=== PATIENT | male | born 1955 | race Caucasian/White ===

== ENCOUNTER 2017-03-08 21:52 | Emergency (ER) | payer OTHER ==
[2017-03-08 22:00] VITALS: TEMP 98.6
[2017-03-08] MEDS ORDERED: ONDANSETRON 4 MG/2 ML VIAL IVP ONE (22:02)
[2017-03-08] MEDS ORDERED: HYDROmorphONE/DILAUDID 1 MG/ML SYR IVP ONE (22:02)
[2017-03-08] MEDS ORDERED: NS 1,000 ML IV ONE (22:02)
--- NOTE | 2017-03-08 22:05 | EDPHY ---
H & P Time Seen by Provider: 03/08/17 22:01 HPI/ROS: HPI Possible kidney stone, left lower abdominal pain. 61-year-old male by private vehicle with his . This patient complains of left lower quadrant pain which is described as a sharp and aching radiating to his Center abdomen. He reports he has had this pain for 2 days. He reports the pain is similar to prior pain with kidney stones. He has had no hematuria. No fever. No nausea or vomiting. Denies bloody or melenic stool. No diarrhea. ROS: Constitutional: No fever, no chills. No weakness. Eyes: No discharge. No changes in vision. ENT: No sore throat. No nasal congestion or rhinorrhea. Respiratory: No cough. No shortness of breath. Cardiac: No chest pain, no palpitations. Gastrointestinal: As above, no vomiting, no diarrhea. Genitourinary: No hematuria. No dysuria or increased frequency with urination. Musculoskeletal: No back pain. No neck pain. No myalgias or arthralgias. Skin: No rashes. Neurological: No headache. No focal weakness or altered sensation. Past medical history: Back surgery, hypertension, testicular cancer, history of kidney stones. Social history: Here with his . Nonsmoker. No alcohol. Physical Exam: General Appearance: Alert, appears uncomfortable. This patient is responding to questions appropriately and in full sentences. This patient appears well- hydrated and well-nourished. Eyes: Pupils equal and round no pallor or injection. No lid edema, erythema or injection. Respiratory: There are no retractions, lungs are clear to auscultation with good air movement bilaterally. Cardiovascular: Regular rate and rhythm. No murmur. Gastrointestinal: Abdomen is soft with mild and vague left lower quadrant tenderness on palpation and vague periumbilical tenderness on palpation, no masses, bowel sounds present. No focal tenderness at McBurney's point. No Corea sign. Neurological: Motor sensory function is grossly intact. Cranial nerves are normal. Gait is normal. Skin: Warm and dry, no rashes. Musculoskeletal: No CVA tenderness on palpation bilaterally. Extremities are symmetrical. All joints range without pain or impingement. Psychiatric: No agitation. No depression. Database: EKG: Imaging: CT scan of abdomen and pelvis without contrast: Several nonobstructing stones in the left kidney. Some dilation and edema involving the small bowel particularly in the left lower quadrant. Consistent with a gastroenteritis verses a partial small-bowel obstruction. Results were discussed with staff radiologist Dr. Schuyler Zapata. Procedures: Emergency department course: IV placed. Patient was placed on a electronic device monitor. He was started on IV normal saline with 1 L to be given over 1 hour. He was initially given 0.5 mg of IV hydromorphone for pain and 4 mg of IV Zofran. This will be repeated as needed. He consents for CT imaging to evaluate for probable ureterolithiasis. 10:25 p.m., patient stood up to urinate became lightheaded and had a brief syncopal episode. I was at the bedside shortly after this event. He has no complaints other than feeling a little bit lightheaded. Blood pressure currently 104/65. patient monitor shows a narrow complex sinus rhythm with ventricular rate of 58. He denies any associated headache, palpitations, chest pain, shortness of breath. 11:30 p.m., patient has returned from CT. Renal insufficiency, likely secondary to dehydration noted. Another 500 cc of IV normal saline will be given. He is still not produced a urine sample for us. 12:00 a.m., patient re-evaluated. Resting comfortably at this time. He denies any pain. Repeat abdominal exam is soft, nontender nondistended. Results of his CAT scan were discussed with him and his . His is a nurse who works here at this hospital. I discussed admission for observation. They do not want to do this at this time. He has not had any vomiting. He has tolerated oral fluids in the emergency department. Given that his is a nurse and closely watch him I feel this is reasonable. I discussed my concern over his elevated creatinine and the need to follow up with his primary care physician, Dr. Thayer, to have this rechecked in a week. Return to emergency department precautions were thoroughly reviewed with the 2 of them. All of their questions were answered. The patient was discharged in good condition. Differential Diagnosis: The differential diagnosis on this patient includes but is not limited to kidney stones, diverticulitis, pyelonephritis, urinary tract infection, volvulus. This represents a partial list of diagnoses considered. These considerations are based on history, physical exam, past history, reassessment and diagnostic testing. Smoking Status: Never smoked Constitutional: Initial Vital Signs Temperature (C) 37 C 03/08/17 21:54 Heart Rate 76 03/08/17 21:54 Respiratory Rate 16 03/08/17 21:54 Blood Pressure 139/85 H 03/08/17 21:54 O2 Sat (%) 95 03/08/17 21:54 O2 Delivery Mode Nasal Cannula O2 (L/minute) 2 Allergies/Adverse Reactions: Penicillins Allergy (Verified 07/06/16 15:30) Home Medications: Medication Instructions Recorded Hydrochlorothiazide 12.5 MG (RX) 10/03/13 Lisinopril 10/03/13 Prilosec 10/03/13 Wellbutrin 10/03/13 Ambien 07/06/16 Medical Decision Making - Data Points Laboratory Results: Laboratory Results 03/08/17 22:15 03/08/17 22:15 03/08/17 03/08/17 03/08/17 23:45 22:15 22:15 WBC 8.88 10^3/uL 10^3/uL (3.80-9.50) RBC 5.80 10^6/uL 10^6/uL (4.40-6.38) Hgb 14.7 g/dL g/dL (13.7-17.5) Hct 45.2 % % (40.0-51.0) MCV 77.9 fL L fL (81.5-99.8) MCH 25.3 pg L pg (27.9-34.1) MCHC 32.5 g/dL g/dL (32.4-36.7) RDW 17.0 % H % (11.5-15.2) Plt Count 210 10^3/uL 10^3/uL (150-400) MPV 10.7 fL fL (8.7-11.7) Neut % (Auto) 71.9 % % (39.3-74.2) Lymph % (Auto) 17.9 % % (15.0-45.0) [place] % (Auto) 6.5 % % (4.5-13.0) Eos % (Auto) 3.0 % % (0.6-7.6) Baso % (Auto) 0.5 % % (0.3-1.7) Nucleat RBC Rel Count 0.0 % % (0.0-0.2) Absolute Neuts (auto) 6.38 10^3/uL 10^3/uL (1.70-6.50) Absolute Lymphs (auto) 1.59 10^3/uL 10^3/uL (1.00-3.00) Absolute Monos (auto) 0.58 10^3/uL 10^3/uL (0.30-0.80) Absolute Eos (auto) 0.27 10^3/uL 10^3/uL (0.03-0.40) Absolute Basos (auto) 0.04 10^3/uL 10^3/uL (0.02-0.10) Absolute Nucleated RBC 0.00 10^3/uL 10^3/uL (0-0.01) Immature Gran % 0.2 % % (0.0-1.1) Immature Gran # 0.02 10^3/uL 10^3/uL (0.00-0.10) Sodium 137 mEq/L mEq/L (134-144) Potassium 4.4 mEq/L mEq/L (3.5-5.2) Chloride 101 mEq/L mEq/L (97-110) Carbon Dioxide 20 mEq/l L mEq/l (22-31) Anion Gap 16 mEq/L mEq/L (8-16) BUN 35 mg/dL H mg/dL (7-23) Creatinine 1.6 mg/dL H mg/dL (0.7-1.3) Estimated GFR 44 Glucose 87 mg/dL mg/dL (70-100) Calcium 9.5 mg/dL mg/dL (8.5-10.4) Specimen Hemolysis 120 Urine Color YELLOW Urine Appearance CLEAR Urine pH 5.0 (5.0-7.5) Ur Specific [place]ck[place] 1.017 (1.002-1.030) Urine Protein NEGATIVE (NEGATIVE) Urine Ketones NEGATIVE (NEGATIVE) Urine Blood NEGATIVE (NEGATIVE) Urine Nitrate NEGATIVE (NEGATIVE) Urine Bilirubin NEGATIVE (NEGATIVE) Urine Urobilinogen NEGATIVE EU EU (0.2-1.0) Ur Leukocyte Esterase NEGATIVE (NEGATIVE) Urine RBC 1-3 /hpf /hpf (0-3) Urine WBC 3-5 /hpf H /hpf (0-3) Ur Epithelial Cells NONE SEEN /lpf /lpf (NONE-1+) Hyaline Casts 1-5 /lpf /lpf (0-1) Urine Mucus TRACE /lpf /lpf (NONE-1+) Urine Glucose NEGATIVE (NEGATIVE) Medications Given: Discontinued Medications Hydromorphone HCl (Dilaudid) 0.5 mg IVP EDNOW ONE Stop: 03/08/17 22:03 Last Admin: 03/08/17 22:22 Dose: 0.5 mg Sodium Chloride (Ns) 1,000 mls @ 0 mls/hr IV ONCE ONE PRN Reason: Wide Open Stop: 03/08/17 22:03 Last Admin: 03/08/17 22:22 Dose: 1,000 mls Ondansetron HCl (Zofran) 4 mg IVP EDNOW ONE Stop: 03/08/17 22:03 Last Admin: 03/08/17 22:23 Dose: 4 mg Departure - Departure Disposition: Home, Routine, Self-Care Clinical Impression: Abdominal pain, acute, left lower quadrant, Renal insufficiency Condition: Good Instructions: Acute Abdominal Pain (ED) Additional Instructions: Read and follow provided instructions. Follow-up with your primary care physician Dr. Thayer, next week for repeat of creatinine. Keep well hydrated. A good fluid to drink is Gatorade mixed with water in a 1- 1 solution. Drink small volumes but frequently. Soft diet for the next 24 hours as discussed. Again small portions. Take medication as prescribed. Return to the emergency department for worsening pain, fever, vomiting or other serious concerns. Referrals: Nigel Thayer MD [Primary Care Provider] - As per Instructions
[2017-03-08] MEDS ORDERED: HYDROmorphONE/DILAUDID 1 MG/ML SYR ONE (22:11)
[2017-03-08 22:38] LABS: % IMMATURE GRANULYOCYTES 0.2 % (0.0-1.1); ABSOLUTE IMMATURE GRANULOCYTES 0.02 10^3/uL (0.00-0.10); ADD DIFF? NO; ADD MORPH? NO; ADD SCAN? NO; ATYPICAL LYMPHOCYTE FLAG 0 (0-99); FRAGMENT RBC FLAG 0 (0-99); HEMATOCRIT 45.2 % (40.0-51.0); HEMOGLOBIN 14.7 g/dL (13.7-17.5); LEFT SHIFT FLG 0 (0-99); LIPEMIA HEMOLYSIS FLAG 80 (0-99); MEAN CELL HEMOGLOBIN 25.3 pg (27.9-34.1); MEAN CELL HEMOGLOBIN CONCENTR. 32.5 g/dL (32.4-36.7); MEAN CELL VOLUME 77.9 fL (81.5-99.8); MEAN PLATELET VOLUME 10.7 fL (8.7-11.7); PLATELET CLUMPS FLAG 0 (0-99); PLATELET COUNT 210 10^3/uL (150-400)
[2017-03-08 22:51] LABS: ANION GAP 16 mEq/L (8-16); CALCIUM 9.5 mg/dL (8.5-10.4); CARBON DIOXIDE 20 mEq/l (22-31); CHLORIDE 101 mEq/L (97-110); CREATININE 1.6 mg/dL (0.7-1.3); GLOMERULAR FILTRATION RATE 44; GLUCOSE 87 mg/dL (70-100); POTASSIUM 4.4 mEq/L (3.5-5.2); SODIUM 137 mEq/L (134-144); SPECIMEN HEMOLYSIS 120
[2017-03-09 00:04] LABS: COLOR YELLOW; LEUKOCYTE ESTERASE,URINE NEGATIVE (NEGATIVE); MUCUS TRACE /lpf (NONE-1+); NITRITE,URINE NEGATIVE (NEGATIVE)
[2017-03-09 00:31] VITALS: BP 126/72; PULSE 64; RESP 14; O2SAT 97
== END 2017-03-09 00:44 | disposition home or self-care (01) ==
DX: R10.32 Left lower quadrant pain (principal); I10 Essential (primary) hypertension; N28.9 Disorder of kidney and ureter, unspecified; Z85.47 Personal history of malignant neoplasm of testis
CPT/HCPCS: 96374; J1170; J2405

== ENCOUNTER 2018-04-20 07:37 | Day surgery (SDC) | payer OTHER ==
[2018-04-20] MEDS ORDERED: NS 500 ML IV ONE (08:04)
--- NOTE | 2018-04-20 08:24 | PDGENHP ---
History and Physical - Chief Complaint dysphagia - History of Present Illness 62 year old male with hx of GERD and recent worsening of symptoms despite PPI use. History Information - Allergies/Home Medication List Allergies/Adverse Reactions: Penicillins Allergy (Unknown, Verified 04/14/18 15:19) Other-Enter Comments Home Medications: Hydrochlorothiazide 12.5 MG (RX) 10/03/13 [Last Taken Unknown] Lisinopril 10/03/13 [Last Taken 07/21/16] Prilosec 10/03/13 [Last Taken 07/21/16] Wellbutrin 10/03/13 [Last Taken 07/21/16] Ambien 07/06/16 [Last Taken 07/21/16] Carvedilol 04/14/18 [Last Taken Unknown] Clonidine 04/14/18 [Last Taken Unknown] Colchicine 04/14/18 [Last Taken Unknown] Flomax 04/14/18 [Last Taken Unknown] Flonase Allergy Relief 04/14/18 [Last Taken Unknown] Fluoxetine HCl 04/14/18 [Last Taken Unknown] Multivitamins 04/14/18 [Last Taken Unknown] Proair Hfa 04/14/18 [Last Taken Unknown] Saw [place] 04/14/18 [Last Taken Unknown] Vitamin B Complex/Folic Acid 04/14/18 [Last Taken Unknown] I have personally reviewed and updated: family history, medical history, social history, surgical history - Past Medical History no pertinent PMH, GERD - Surgical History Reports: no pertinent surgical hx - Social History Smoking Status: Never smoked Review of Systems Review of Systems: ROS: 10pt was reviewed & negative except for what was stated in HPI & below Physical Exam Physical Exam: Temp Pulse Resp BP Pulse Ox 36.9 C 57 L 18 128/74 H 97 04/20/18 08:12 04/20/18 08:12 04/20/18 08:12 04/20/18 08:12 04/20/18 08:12 Constitutional: no apparent distress Eyes: PERRL Ears, Nose, Mouth, Throat: moist mucous membranes Cardiovascular: regular rate and rhythym Respiratory: no respiratory distress Gastrointestinal: normoactive bowel sounds Skin: warm Musculoskeletal: full muscle strength Neurologic: AAOx3 Assessment & Plan Assessment: GERD/Dysphagia Plan: EGD with bx/dilation
[2018-04-20] MEDS ORDERED: MIDAZOLAM 2 MG/2 ML VIAL ONE (08:58)
[2018-04-20] MEDS ORDERED: fentaNYL 100 MCG/2 ML INJ ONE (08:58)
[2018-04-20] MEDS ORDERED: fentaNYL 100 MCG/2 ML INJ IVP ONE (09:26)
[2018-04-20] MEDS ORDERED: MIDAZOLAM 2 MG/2 ML VIAL IVP ONE (09:26)
--- NOTE | 2018-04-20 09:31 | GIREPORT ---
[facility] Surgical Services - Endoscopy Department Patient Name: Pradip Ratliff Procedure Date: 04/20/2018 8:59 AM Patient Type: Outpatient Attending MD/ ER Physician: Tiffany Copeland MD Procedure: Upper GI endoscopy Indications: Epigastric abdominal pain, Dysphagia, Heartburn, Esophageal reflux Providers: Tiffany Copeland MD Medicines: Fentanyl 175 micrograms IV, Midazolam 7 mg IV Complications: No immediate complications. Description of Procedure: After obtaining informed consent, the endoscope was passed under direct vision. Throughout the procedure, the patient's blood pressure, pulse, and oxygen saturations were monitored continuously. The Endoscope was intro duced through the mouth, and advanced to the fourth part of duodenum. [facility] GI endoscopy was accomplished without difficulty. The patient tolerated th e procedure well. Moderate Sedation: Moderate (conscious) sedation was administered by the endoscopy nurse mike chau supervised by the endoscopist. The following parameters were monitored: oxygen saturation, heart rate, blood pressure, and response to care. To yevgeniy physician intraservice time was 14 minutes. Findings: The mid esophagus was normal. Biopsies were taken with a cold forceps f or histology. A guidewire was placed and the scope was withdrawn. Dilation was performed with a Savary dilator with no resistance at 54 Fr. The Z-line was irregular and was found at the gastroesophageal junction . Biopsies were taken with a cold forceps for histology. Diffuse moderate inflammation characterized by congestion (edema), eros ions and erythema was found in the entire examined stomach. Biopsies were ta chandrika with a cold forceps for histology. The examined duodenum was normal. Estimated Blood Loss: Estimated blood loss: none. Post Op Diagnosis: - Normal mid esophagus. Biopsied. Dilated. - Z-line irregular, at the gastroesophageal junction. Biopsied. - Gastritis. Biopsied. - Normal examined duodenum. Recommendation: - Written discharge instructions were provided to the patient. - The signs and symptoms of potential delayed complications were discus sed with the patient. - Patient has a contact number available for emergencies. - Return to normal activities tomorrow. - Resume previous diet. - Continue present medications. - Await pathology results. - Will consider additional work-up or therapy changes pending the biops y results. Attending Participation: I personally performed the entire procedure. Tiffany Copeland MD Tiffany Copeland MD 04/20/2018 9:31:06 AM This report has been signed electronicallyTiffany Copeland MD Number of Addenda: 0 Note Initiated On: 04/20/2018 8:59 AM [email or web address]
--- NOTE | 2018-04-20 10:06 | PDPROPOC ---
Sedation Plan of Care Sedation Plan of Care: vital signs stable ASA Classification: ASA 2 Planned drugs: fentanyl, midazolam Mallampati Score: Class 1 Mallampati Reference Image:
[2018-04-20 10:38] VITALS: BP 113/72
== END 2018-04-20 10:52 | disposition home or self-care (01) ==
LOC: FSGY 07:37
PROVIDERS: ATTEND Internal Medicine Gastroenterology
PROC: 0DB28ZX Excision of Middle Esophagus, Via Natural or Artificial Opening Endoscopic, Diagnostic (ICD-10-PCS; principal; 2018-04-20 09:00)
PROC: 0D728ZZ Dilation of Middle Esophagus, Via Natural or Artificial Opening Endoscopic (ICD-10-PCS; principal; 2018-04-20 09:00)
PROC: 0DB68ZX Excision of Stomach, Via Natural or Artificial Opening Endoscopic, Diagnostic (ICD-10-PCS; principal; 2018-04-20 09:00)
PROC: 0DB48ZX Excision of Esophagogastric Junction, Via Natural or Artificial Opening Endoscopic, Diagnostic (ICD-10-PCS; principal; 2018-04-20 09:00)
DX: K29.70 Gastritis, unspecified, without bleeding (principal); K22.8 Other specified diseases of esophagus; K21.9 Gastro-esophageal reflux disease without esophagitis; R13.10 Dysphagia, unspecified; R10.13 Epigastric pain; Z88.0 Allergy status to penicillin
CPT/HCPCS: J2250; J3010

== ENCOUNTER → 2018-10-02 | Outpatient (CLI) | payer OTHER | LOC: FIMAGING 13:47 | PROVIDERS: ATTEND Orthopaedic Surgery | DX: M93.971 Osteochondropathy, unspecified, right ankle and foot (principal) ==

== ENCOUNTER 2018-12-21 10:09 | Emergency (ER) | payer OTHER ==
[2018-12-21 22:45] VITALS: BP 140/78
--- NOTE | 2018-12-22 07:17 | EDPHY ---
H & P Stated Complaint: awakened with r leg numbness and feels dizzy when moves head Time Seen by Provider: 12/21/18 10:25 HPI/ROS: CHIEF COMPLAINT: Right leg numbness, vertigo HISTORY OF PRESENT ILLNESS: The patient presents the ED after he woke this morning with numbness in his right leg. The patient describes loss of sensation on the plantar and dorsal aspect of his foot extending up to his knee and slightly to his hip. The patient is noted not weakness. He denies bowel or bladder dysfunction. Patient does have a history of multiple back surgeries in the past. Additionally the patient is having mild symptoms of vertigo and dizziness. He denies any complaints of severe headache. He denies any fever, cough or congestion. He denies any upper extremity neurologic complaints. REVIEW OF SYSTEMS: A comprehensive 10 point review of systems is otherwise negative aside from elements mentioned in the history of present illness. Source: Patient Exam Limitations: No limitations - Personal History Current Tetanus Diphtheria and Acellular Pertussis (TDAP): Yes - Medical/Surgical History Hx Asthma: No Hx Chronic Respiratory Disease: No Hx Diabetes: No Hx Cardiac Disease: No Hx Renal Disease: No Hx Cirrhosis: No Hx Alcoholism: No Hx HIV/AIDS: No Hx Splenectomy or Spleen Trauma: No Other PMH: back surg, HTN, S-I joint/back infection with surgery, kidney stones , retroperitoneal lymph node removal, hx testicular CA - Social History Smoking Status: Never smoked - Physical Exam Exam: General Appearance: Alert, no distress Eyes: Pupils equal and round no pallor or injection ENT, Mouth: Mucous membranes moist Respiratory: There are no retractions, lungs are clear to auscultation Cardiovascular: Regular rate and rhythm Gastrointestinal: Abdomen is soft and nontender, no masses, bowel sounds normal Neurological: Alert oriented x4, 5/5 strength noted all extremities, cranial nerves 2-12 intact, decreased sensation to light touch noted throughout right lower extremity in a nondermatomal distribution. Skin: Warm and dry, no rashes Musculoskeletal: Neck is supple nontender Extremities: symmetrical, full range of motion Psychiatric: Patient is oriented X 3, there is no agitation Constitutional: Initial Vital Signs Temperature (C) 36.6 C 12/21/18 10:21 Heart Rate 61 12/21/18 10:21 Respiratory Rate 18 12/21/18 10:21 Blood Pressure 151/83 H 12/21/18 10:21 O2 Sat (%) 96 12/21/18 10:21 O2 Delivery Mode Room Air Allergies/Adverse Reactions: Penicillins Allergy (Unknown, Verified 12/21/18 10:20) Other-Enter Comments Home Medications: Medication Instructions Recorded Hydrochlorothiazide 12.5 MG (RX) 10/03/13 Lisinopril 10/03/13 Prilosec 10/03/13 Wellbutrin 10/03/13 Ambien 07/06/16 Carvedilol 04/14/18 Clonidine 04/14/18 Colchicine 04/14/18 Flomax 04/14/18 Flonase Allergy Relief 04/14/18 Fluoxetine HCl 04/14/18 Multivitamins 04/14/18 Proair Hfa 04/14/18 Saw [place] 04/14/18 Vitamin B Complex/Folic Acid 04/14/18 Medical Decision Making - Diagnostics Imaging Results: Brain MRI without contrast: Impression: normal, negative for acute stroke. Reviewed by myself and with radiologist Dr. Schuyler Zapata. 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 No evidence of critical lumbar stenosis noted. Images reviewed by myself and with radiologist Dr. Schuyler Zapata. ED Course/Re-evaluation: Patient presents to the ED with vertiginous symptoms as well as acute right leg numbness. Aside from subjective decreased sensation to light touch in the right leg patient's neurologic examination is unremarkable. The differential is somewhat broad including both a small stroke as well as lumbar pathology. The patient was taken for an MRI of the brain and lumbar spine which demonstrate no evidence of acute stroke but does demonstrate a disc herniation at L3/4 into the right neuroforamen. I did discuss the case with Dr. Mg from Neurosurgery. I also spoke with Dr. Boateng the patient's regular neurosurgeon who reviewed his MRI. The patient will be discharged home with a Solu-Medrol Dosepak and follow up with Dr. Boateng. He is given customary aftercare instructions and return precautions. Differential Diagnosis: Differential diagnosis considered includes stroke, TIA, peripheral neuropathy, sciatica, critical lumbar stenosis Departure - Departure Disposition: Home, Routine, Self-Care Clinical Impression: Lumbar radiculopathy, acute Condition: Good Instructions: Lumbar Radiculopathy (ED) Additional Instructions: Medrol Dosepak as directed. Follow-up with Dr. Boateng. Return to the ED for the development of any acute weakness, bowel or bladder dysfunction or other concerns. Referrals: Nigel Thayer MD [Primary Care Provider] - As per Instructions
--- NOTE | 2018-12-22 08:49 | CPEKG ---
Test Reason : OPEN Blood Pressure : / mmHG Vent. Rate : 053 BPM Atrial Rate : 053 BPM P-R Int : 247 ms QRS Dur : 112 ms QT Int : 500 ms P-R-T Axes : 013 -30 -01 degrees QTc Int : 470 ms Sinus rhythm Prolonged NE interval Left atrial enlargement Incomplete RBBB and LAFB Left ventricular hypertrophy Confirmed by Wiley Calixto ([id number]) on 12/22/2018 8:48:58 AM Referred By: Wiley Calixto Confirmed By:Wiley Calixto
== END 2018-12-21 14:45 | disposition home or self-care (01) ==
DX: M51.16 Intervertebral disc disorders with radiculopathy, lumbar region (principal); M48.061 Spinal stenosis, lumbar region without neurogenic claudication; I10 Essential (primary) hypertension; Z85.47 Personal history of malignant neoplasm of testis
CPT/HCPCS: 70551-PN

== ENCOUNTER → 2019-03-08 | Outpatient (CLI) | payer OTHER | LOC: FIMAGING 18:40 ==

== ENCOUNTER 2019-04-07 05:51 | Day surgery (SDC) | payer OTHER | END 2019-04-07 10:25 | disposition home or self-care (01) | LOC: FSGY 05:51 ==